=== PATIENT | female | born 1945 | race Caucasian/White ===

== ENCOUNTER 2017-04-17 07:58 | Outpatient (CLI) | payer MEDICARE, OTHER ==
[2017-04-17 16:05] LABS: ALBUMIN/GLOBULIN RATIO 1.3 (1.0-2.2); BILIRUBIN,TOTAL 0.5 mg/dL (0.2-1.0); BUN - BLOOD UREA NITROGEN 10 mg/dL (6-20); CALCIUM 9.2 mg/dL (8.5-10.3); CARBON DIOXIDE - CO2 29 mmol/L (21-32); CHLORIDE 100 mmol/L (101-111); CHOL/HDL RATIO 3.9 (<4.4); CHOLESTEROL 207 mg/dL; CREATININE 0.7 mg/dL (0.4-1.0); GFR - MDRD 82 (>89); GLUCOSE 107 mg/dL (70-100); HDL CHOLESTEROL 53 mg/dL; LDL/HDL RATIO 2.3 (<4.4); POTASSIUM 3.2 mmol/L (3.5-5.0); SODIUM 137 mmol/L (135-145); TOTAL PROTEIN 7.4 g/dL (6.7-8.2); TRIGLYCERIDES 157 mg/dL; VLDL CHOLESTEROL 31 mg/dL
== END 2017-04-17 07:59 | disposition home or self-care (01) ==
LOC: LAB.N 07:58
PROVIDERS: ATTEND Family Medicine
DX: E78.5 Hyperlipidemia, unspecified (principal)
CPT/HCPCS: 36415; 80053; 80061

== ENCOUNTER 2017-04-18 13:24 | Outpatient (CLI) | payer MEDICARE, OTHER ==
--- NOTE | 2017-04-19 09:13 | XRAY Report ---
THREE-VIEW RIGHT KNEE: 04/18/2017 CLINICAL INDICATION: Pain. FINDINGS: AP, lateral, sunrise views of the right knee demonstrate moderate osteoarthritis. There i s no evidence of acute fracture. No effusion is present. IMPRESSION: MODERATE OSTEOARTHRITIS. JOB #: [id number] EXT JOB #:[id number]
== END 2017-04-18 13:25 | disposition home or self-care (01) ==
LOC: DI.N 13:24
PROVIDERS: ATTEND Family Medicine
DX: M17.11 Unilateral primary osteoarthritis, right knee (principal)

== ENCOUNTER 2017-07-14 06:59 | Outpatient (CLI) | payer MEDICARE, OTHER ==
[2017-07-14 19:20] LABS: BASOPHILS # (AUTO) 0.1 10^3/uL (0.0-0.1); BASOPHILS % (AUTO) 1.2 %; EOSINOPHILS # (AUTO) 0.4 10^3/uL (0.0-0.7); EOSINOPHILS % (AUTO) 4.6 %; HCT - HEMATOCRIT 35.5 % (37.0-47.0); HGB - HEMOGLOBIN 12.1 g/dL (12.0-16.0); LYMPHOCYTES # (AUTO) 1.6 10^3/uL (1.5-3.5); LYMPHOCYTES % (AUTO) 19.9 %; MEAN CORPUSCULAR HEMOGLOBIN 31.2 pg (27.0-31.0); MEAN CORPUSCULAR VOLUME 91.8 fL (81.0-99.0); MEAN PLATELET VOLUME 8.6 fL (7.9-10.8); MONOCYTES # (AUTO) 0.8 10^3/uL (0.0-1.0); MONOCYTES % (AUTO) 9.6 %; NEUTROPHILS # (AUTO) 5.3 10^3/uL (1.5-6.6); NEUTROPHILS % (AUTO) 64.7 %; RED BLOOD COUNT 3.87 10^6/uL (4.20-5.40); RED CELL DISTRIBUTION WIDTH 12.6 % (12.0-15.0); UNCORRECTED WHITE BLOOD COUNT 8.3 x10^3/uL; WHITE BLOOD COUNT 8.3 x10^3/uL (4.8-10.8)
[2017-07-14 19:24] LABS: CALCIUM 9.5 mg/dL (8.5-10.3); CREATININE 0.7 mg/dL (0.4-1.0); POTASSIUM 3.9 mmol/L (3.5-5.0)
== END 2017-07-14 07:00 | disposition home or self-care (01) ==
LOC: LAB.N 06:59
PROVIDERS: ATTEND Family Medicine
DX: E87.6 Hypokalemia (principal); D64.9 Anemia, unspecified
CPT/HCPCS: 36415; 80048; 85025

== ENCOUNTER 2018-03-14 08:00 | Outpatient (CLI) | payer MEDICARE, OTHER ==
[2018-03-14 12:47] LABS: BASOPHILS # (AUTO) 0.1 10^3/uL (0.0-0.1); BASOPHILS % (AUTO) 2.1 %; EOSINOPHILS # (AUTO) 0.2 10^3/uL (0.0-0.7); HGB - HEMOGLOBIN 12.5 g/dL (12.0-16.0); LYMPHOCYTES # (AUTO) 1.5 10^3/uL (1.5-3.5); LYMPHOCYTES % (AUTO) 27.2 %; MEAN CORPUSCULAR HEMOGLOBIN 30.9 pg (27.0-31.0); MEAN CORPUSCULAR HGB CONC 33.9 g/dL (32.0-36.0); MEAN CORPUSCULAR VOLUME 91.1 fL (81.0-99.0); MEAN PLATELET VOLUME 8.4 fL (7.9-10.8); MONOCYTES # (AUTO) 0.6 10^3/uL (0.0-1.0); MONOCYTES % (AUTO) 10.2 %; NEUTROPHILS # (AUTO) 3.2 10^3/uL (1.5-6.6); NEUTROPHILS % (AUTO) 57.5 %; PLT - PLATELET COUNT 332 10^3/uL (130-450); RED BLOOD COUNT 4.06 10^6/uL (4.20-5.40); RED CELL DISTRIBUTION WIDTH 12.6 % (12.0-15.0); WHITE BLOOD COUNT 5.6 x10^3/uL (4.8-10.8)
[2018-03-14 13:12] LABS: ALBUMIN 3.9 g/dL (3.2-5.5); ALBUMIN/GLOBULIN RATIO 1.1 (1.0-2.2); ALKALINE PHOSPHATASE 54 IU/L (42-121); ALT ALANINE AMINOTRANSFERASE 22 IU/L (10-60); AST ASPARTATE AMINOTRANSFERASE 26 IU/L (10-42); BILIRUBIN,TOTAL 0.6 mg/dL (0.2-1.0); BUN - BLOOD UREA NITROGEN 14 mg/dL (6-20); CARBON DIOXIDE - CO2 27 mmol/L (21-32); CHLORIDE 100 mmol/L (101-111); CHOL/HDL RATIO 3.3 (<4.4); CHOLESTEROL 191 mg/dL; CREATININE 0.6 mg/dL (0.4-1.0); GFR - MDRD 98 (>89); GLUCOSE 105 mg/dL (70-100); HDL CHOLESTEROL 58 mg/dL; LDL CHOLESTEROL,CALCULATED 104 mg/dL; LDL/HDL RATIO 1.8 (<4.4); SODIUM 134 mmol/L (135-145); TOTAL PROTEIN 7.4 g/dL (6.7-8.2); VLDL CHOLESTEROL 29 mg/dL
== END 2018-03-14 08:01 | disposition home or self-care (01) ==
LOC: LAB.N 08:00
PROVIDERS: ATTEND Nurse Practitioner Gerontology
DX: R73.9 Hyperglycemia, unspecified (principal); D64.9 Anemia, unspecified; E78.5 Hyperlipidemia, unspecified; E87.6 Hypokalemia
CPT/HCPCS: 36415; 80053; 80061; 82728; 83721; 85025

== ENCOUNTER 2018-04-10 10:15 | Outpatient (CLI) | payer MEDICARE, OTHER | END 2018-04-10 10:16 | disposition home or self-care (01) | LOC: LAB.R 10:15 | PROVIDERS: ATTEND Nurse Practitioner Gerontology | DX: R39.89 Other symptoms and signs involving the genitourinary system (principal) | CPT/HCPCS: 87086 ==

== ENCOUNTER 2018-07-17 16:00 | Outpatient (CLI) | payer MEDICARE, OTHER ==
[2018-07-17 19:12] LABS: BASOPHILS # (AUTO) 0.1 10^3/uL (0.0-0.1); BASOPHILS % (AUTO) 0.7 %; EOSINOPHILS # (AUTO) 0.2 10^3/uL (0.0-0.7); EOSINOPHILS % (AUTO) 1.8 %; HGB - HEMOGLOBIN 12.8 g/dL (12.0-16.0); LYMPHOCYTES # (AUTO) 2.3 10^3/uL (1.5-3.5); LYMPHOCYTES % (AUTO) 27.5 %; MEAN CORPUSCULAR HEMOGLOBIN 31.4 pg (27.0-31.0); MEAN CORPUSCULAR HGB CONC 34.5 g/dL (32.0-36.0); MEAN PLATELET VOLUME 8.2 fL (7.9-10.8); MONOCYTES # (AUTO) 0.7 10^3/uL (0.0-1.0); MONOCYTES % (AUTO) 7.8 %; NEUTROPHILS # (AUTO) 5.3 10^3/uL (1.5-6.6); NEUTROPHILS % (AUTO) 62.2 %; PLT - PLATELET COUNT 417 10^3/uL (130-450); RED BLOOD COUNT 4.07 10^6/uL (4.20-5.40); RED CELL DISTRIBUTION WIDTH 12.5 % (12.0-15.0); WHITE BLOOD COUNT 8.5 x10^3/uL (4.8-10.8)
[2018-07-17 19:38] LABS: ALBUMIN 4.3 g/dL (3.2-5.5); ALBUMIN/GLOBULIN RATIO 1.3 (1.0-2.2); ALKALINE PHOSPHATASE 60 IU/L (42-121); ALT ALANINE AMINOTRANSFERASE 21 IU/L (10-60); AST ASPARTATE AMINOTRANSFERASE 28 IU/L (10-42); BILIRUBIN,TOTAL 0.5 mg/dL (0.2-1.0); BUN - BLOOD UREA NITROGEN 19 mg/dL (6-20); CALCIUM 9.6 mg/dL (8.5-10.3); CARBON DIOXIDE - CO2 25 mmol/L (21-32); CHLORIDE 100 mmol/L (101-111); CHOL/HDL RATIO 3.1 (<4.4); CHOLESTEROL 197 mg/dL; CREATININE 0.7 mg/dL (0.4-1.0); GFR - MDRD 82 (>89); GLUCOSE 103 mg/dL (70-100); HDL CHOLESTEROL 63 mg/dL; LDL CHOLESTEROL,CALCULATED 101 mg/dL; LDL/HDL RATIO 1.6 (<4.4); SODIUM 135 mmol/L (135-145); TOTAL PROTEIN 7.7 g/dL (6.7-8.2); VLDL CHOLESTEROL 33 mg/dL
== END 2018-07-17 16:01 | disposition home or self-care (01) ==
LOC: LAB.N 16:00
PROVIDERS: ATTEND Nurse Practitioner Gerontology
DX: E87.6 Hypokalemia (principal); E78.5 Hyperlipidemia, unspecified; D64.9 Anemia, unspecified; R14.0 Abdominal distension (gaseous)
CPT/HCPCS: 36415; 80053; 80061; 81599; 83721; 85025; 86255; 86256

== ENCOUNTER 2018-09-16 02:42 | Outpatient (CLI) | payer MEDICARE, OTHER | END 2018-09-16 02:43 | disposition critical access hospital (66) | LOC: EMS 02:42 | PROVIDERS: ATTEND Surgery | DX: R07.9 Chest pain, unspecified (principal) | CPT/HCPCS: A0425; A0429 ==

== ENCOUNTER 2018-09-16 03:15 | Emergency (ER) | payer MEDICARE, OTHER ==
--- NOTE | 2018-09-16 03:33 | ED Physician Documentation ---
PD HPI CHEST PAIN - Stated complaint Stated Complaint: CP - Chief complaint Chief Complaint: Cardiac - History obtained from History obtained from: Patient - History of Present Illness Timing - onset: Enter time (23:00) Timing - onset during: Rest Timing - details: Abrupt onset Quality: Pressure Location: Substernal Radiation: Abdominal (epigastrium). No: Jaw, Neck, Back, Left upper extremity, Right upper extremity Improved by: Nothing Worsened by: Other (no exacerbating factors) Associated symptoms: No: Shortness of air, Diaphoresis, Nausea, Vomiting, Feeling faint / dizzy, General Weakness, Palpitations, Cough Similar symptoms before: Has not had sx before Recently seen: Not recently seen Review of Systems Unable to obtain: Unresponsive Constitutional: reports: Fatigue, Reviewed and negative Throat: reports: Reviewed and negative Cardiac: reports: Chest pain / pressure, Palpitations, Calf pain Respiratory: reports: Reviewed and negative GI: reports: Reviewed and negative PD PAST MEDICAL HISTORY - Past Medical History Past Medical History: Yes GI: Other Psych: Anxiety Other Past Medical History: IBS - Past Surgical History 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 - Present Medications Home Medications: Ambulatory Orders Medication Instructions Recorded Confirmed Carboxymethylcellulose Sodium 15 ml OP 09/16/18 [Lubricant Eye Drop] Dicyclomine HCl 1 tab PO DAILY PRN 09/16/18 09/16/18 Fluticasone [Flonase] 1 spray NS BID 09/16/18 09/16/18 Ibuprofen 1 tab PO Q8HR PRN 09/16/18 09/16/18 Phenazopyridine [Pyridium] 09/16/18 Ranitidine HCl [Acid Business Development Recruiter] 150 mg PO DAILY 09/16/18 09/16/18 diphenhydrAMINE [Benadryl] 25 mg PO QPM PRN 09/16/18 09/16/18 predniSONE [Prednisone] PO 09/16/18 - Allergies Allergies/Adverse Reactions: Allergies Allergy/AdvReac Type Severity Reaction Status Date / Time Acyclovir Analogues Allergy Rash Verified 09/16/18 03:37 latex Allergy Hives Verified 09/16/18 03:36 Sulfa (Sulfonamide Allergy Hives Verified 09/16/18 03:36 Antibiotics) steristrips Allergy Hives Uncoded 09/16/18 03:37 - Social History Does the pt smoke?: No Smoking Status: Never smoker Does the pt drink ETOH?: No Does the pt have substance abuse?: No - Immunizations Immunizations are current?: Yes - POLST Patient has POLST: No PD ED PE NORMAL - Vitals Vital signs reviewed: Yes - General General: Alert and oriented X 3, No acute distress, Well developed/nourished - HEENT HEENT: PERRL, EOMI, Moist mucous membranes - Neck Neck: No bony TTP - Cardiac Cardiac: RRR, No murmur, No rub - Respiratory Respiratory: No respiratory distress, Clear bilaterally - Abdomen Abdomen: Soft, Non tender - Back Back: No CVA TTP - Extremities Extremities: No deformity, No tenderness to palpate, Normal ROM s pain, No edema - Neuro Neuro: Alert and oriented X 3 Eye Opening: Spontaneous Motor: Obeys Commands Results - Vitals Vitals: Vital Signs - 24 hr 09/16/18 09/16/18 09/16/18 03:18 03:30 04:00 Temperature 36.9 C 36.4 C L Heart Rate 66 67 63 Respiratory 16 16 16 Rate Blood Pressure 154/77 H 137/80 H 122/69 O2 Saturation 97 96 96 09/16/18 05:17 Temperature Heart Rate 60 Respiratory 17 Rate Blood Pressure 119/69 O2 Saturation 97 Oxygen O2 Source Room air - EKG (time done) No standard instances Rate: Rate (enter#) (67) [place]: Normal Intervals: Normal [place] QRS: Normal Ischemia: Normal ST segments - Labs Labs: Laboratory Tests 09/16/18 09/16/18 09/16/18 03:45 03:45 03:45 WBC 6.8 RBC 3.99 L Hgb 12.5 Hct 35.8 L MCV 89.9 MCH 31.3 H MCHC 34.9 RDW 12.8 Plt Count 324 MPV 7.8 L Neut # (Auto) 4.3 Lymph # (Auto) 1.7 [place] # (Auto) 0.6 Eos # (Auto) 0.1 Baso # (Auto) 0.1 Absolute Nucleated RBC 0.01 Nucleated RBC % 0.1 Sodium 137 Potassium 3.5 Chloride 104 Carbon Dioxide 24 Anion Gap 9.0 BUN 20 Creatinine 0.6 Estimated GFR (MDRD) 98 Glucose 121 H Calcium 9.3 Total Bilirubin 0.4 AST 26 ALT 20 Alkaline Phosphatase 53 Troponin I < 0.04 Total Protein 7.3 Albumin 4.5 Globulin 2.8 Albumin/Globulin Ratio 1.6 Lipase 50 TSH 09/16/18 03:45 WBC RBC Hgb Hct MCV MCH MCHC RDW Plt Count MPV Neut # (Auto) Lymph # (Auto) [place] # (Auto) Eos # (Auto) Baso # (Auto) Absolute Nucleated RBC Nucleated RBC % Sodium Potassium Chloride Carbon Dioxide Anion Gap BUN Creatinine Estimated GFR (MDRD) Glucose Calcium Total Bilirubin AST ALT Alkaline Phosphatase Troponin I Total Protein Albumin Globulin Albumin/Globulin Ratio Lipase TSH 4.08 - Rads (name of study) chest xray Radiology: Prelim report reviewed, See rad report PD MEDICAL DECISION MAKING - ED course Complexity details: reviewed results, re-evaluated patient, considered differential, d/w patient Departure - Departure Disposition: 01 Home, Self Care Clinical Impression: Atypical chest pain Condition: Good Instructions: ED Chest Pain Atypical Unkn Cause Follow-Up: [facility] [Provider Group] [facility] [Provider Group] Discharge Date/Time: 09/16/18 05:30
[2018-09-16 03:55] LABS: BASOPHILS # (AUTO) 0.1 10^3/uL (0.0-0.1); BASOPHILS % (AUTO) 0.9 %; EOSINOPHILS # (AUTO) 0.1 10^3/uL (0.0-0.7); EOSINOPHILS % (AUTO) 1.5 %; HGB - HEMOGLOBIN 12.5 g/dL (12.0-16.0); LYMPHOCYTES # (AUTO) 1.7 10^3/uL (1.5-3.5); LYMPHOCYTES % (AUTO) 24.6 %; MEAN CORPUSCULAR HEMOGLOBIN 31.3 pg (27.0-31.0); MEAN CORPUSCULAR HGB CONC 34.9 g/dL (32.0-36.0); MEAN CORPUSCULAR VOLUME 89.9 fL (81.0-99.0); MEAN PLATELET VOLUME 7.8 fL (7.9-10.8); MONOCYTES # (AUTO) 0.6 10^3/uL (0.0-1.0); MONOCYTES % (AUTO) 9.4 %; NEUTROPHILS # (AUTO) 4.3 10^3/uL (1.5-6.6); NEUTROPHILS % (AUTO) 63.6 %; PLT - PLATELET COUNT 324 10^3/uL (130-450); RED BLOOD COUNT 3.99 10^6/uL (4.20-5.40); RED CELL DISTRIBUTION WIDTH 12.8 % (12.0-15.0); WHITE BLOOD COUNT 6.8 x10^3/uL (4.8-10.8)
[2018-09-16 04:04] LABS: ALBUMIN 4.5 g/dL (3.2-5.5); ALBUMIN/GLOBULIN RATIO 1.6 (1.0-2.2); BILIRUBIN,TOTAL 0.4 mg/dL (0.2-1.0); CALCIUM 9.3 mg/dL (8.5-10.3); CREATININE 0.6 mg/dL (0.4-1.0); TOTAL PROTEIN 7.3 g/dL (6.7-8.2)
--- NOTE | 2018-09-16 04:23 | XRAY Report ---
Reason: chest pain Procedure Date: 09/16/2018 Accession Number: [id number] / [id number] Procedure: XR - Chest 2 View X-Ray CPT Code: 59982 FULL RESULT: EXAM: CHEST RADIOGRAPHY EXAM DATE: 09/16/2018 04:19 AM. CLINICAL HISTORY: Chest pain. COMPARISON: None. TECHNIQUE: 2 views. FINDINGS: Lungs/Pleura: No focal opacities evident. No pleural effusion. No pneumothorax. Normal volumes. Mediastinum: Heart and mediastinal contours are unremarkable. Other: None. IMPRESSION: Normal 2-view chest radiography. RADIA
[2018-09-16] MEDS ORDERED: ALPRAZolam 0.25 MG TABLET PO STA (05:08)
[2018-09-16 05:18] VITALS: BP 119/69
== END 2018-09-16 05:30 | disposition home or self-care (01) ==
LOC: EDUNIT# → ED 03:15
DX: R07.89 Other chest pain (principal)
CPT/HCPCS: 36415; 71046; 80053; 83690; 84443; 84484; 85025; 93005; 99283; 99284; A9270

== ENCOUNTER 2018-12-13 15:44 | Outpatient (CLI) | payer MEDICARE, OTHER ==
--- NOTE | 2018-12-13 18:28 | XRAY Report ---
Reason: URI,COUGH Procedure Date: 12/13/2018 Accession Number: [id number] / [id number] Procedure: XR - Chest 2 View X-Ray CPT Code: 86529 FULL RESULT: EXAM: CHEST RADIOGRAPHY EXAM DATE: 12/13/2018 03:55 PM. CLINICAL HISTORY: Cough. COMPARISON: CHEST 2 VIEW 09/16/2018 4:03 AM. TECHNIQUE: 2 views. FINDINGS: Lungs/Pleura: No focal opacities evident. No pleural effusion. No pneumothorax. Normal volumes. Mediastinum: Heart and mediastinal contours are unremarkable. Other: None. IMPRESSION: No acute intrathoracic plain film abnormality. RADIA
== END 2018-12-13 15:45 | disposition home or self-care (01) ==
LOC: DI 15:44
PROVIDERS: ATTEND Internal Medicine
DX: R05 Cough (principal)
CPT/HCPCS: 71046

== ENCOUNTER 2020-03-16 13:58 | Outpatient (CLI) | payer MEDICARE, OTHER ==
--- NOTE | 2020-03-17 12:52 | DEXA Report ---
Reason: OTHER SPEC MENOPAUSAL Procedure Date: 03/16/2020 Accession Number: [id number] / [id number] Procedure: DEX - Dexa Spine and/or Hip CPT Code: Final Report FULL RESULT: PROCEDURE: Dexa Spine and/or Hip INDICATIONS: OTHER SPEC MENOPAUSAL TECHNIQUE: Dual energy x-ray absorptiometry (DXA) was performed on a [employer] System. Regions measured are the AP Spine, femoral neck, and if needed forearm. COMPARISON: None. FINDINGS: Lumbar Spine: Bone Mineral Density 1.108 g/cm/cm,T score -0.5 Left Hip: Bone Mineral Density 0.948 g/cm/cm,T score -0.5 Left Femoral Neck: Bone Mineral Density 0.820 g/cm/cm, T score -1.6 (T score greater or equal to -1.0: NORMAL) (T score from -1.1 to -2.4: OSTEOPENIA) (T score less than or equal to -2.5 to: OSTEOPOROSIS) Impression: 1. Osteopenia of the left femoral neck. Otherwise normal bone mineral density. Patients with diagnosis of osteoporosis or osteopenia should have regular bone mineral density assessment. For those eligible for Medicare, routine testing is allowed once every 2 years. Testing frequency can be increased for patients who have rapidly progressing disease or for those who are receiving medical therapy to restore bone mass. Reviewed by: Kourtney Ayala MD on 03/17/2020 12:51 PM PDT Approved by: Kourtney Ayala MD on 03/17/2020 12:51 PM PDT Station ID: [id number]
== END 2020-03-16 13:59 | disposition home or self-care (01) ==
LOC: DI 13:58
PROVIDERS: ATTEND Family Medicine
DX: Z13.820 Encounter for screening for osteoporosis (principal); N95.8 Other specified menopausal and perimenopausal disorders; M85.88 Other specified disorders of bone density and structure, other site
CPT/HCPCS: 77080

== ENCOUNTER 2021-01-20 12:50 | Outpatient (CLI) | payer MEDICARE, OTHER ==
--- NOTE | 2021-01-21 15:19 | Mammography Report ---
BILATERAL DIGITAL SCREENING MAMMOGRAM 3D/2D: 01/20/2021 CLINICAL: Routine screening. Comparison is made to exams dated: 05/30/2019 mammogram, 07/19/2017 mammogram, 07/04/2016 mammogram - [facility], and 06/29/2015 mammogram - [facility]. There are scattered fib roglandular elements in both breasts. No significant masses, calcifications, or other findings are seen in either breast. There has been no significant interval change. IMPRESSION: NEGATIVE There is no mammographic evidence of malignancy. A 1 year screening mammogram is recommended. This exam was interpreted at Station ID: [id number]. NOTE: For mammograms, a report in lay terms will be sent to the patient. Approximately 15% of breast malignancies will not be visualized mammographically. In the management of a palpable breast mass, a negative mammogram must not discourage biopsy of a clinically suspicious lesion. Electronically Signed By: Amelie lisa/penrad:01/20/2021 16:31:17 ACR BI-RADS Category 1: Negative 3341F PARENCHYMAL PATTERN: (A) - The breast(s) demonstrate(s) scattered fibroglandular densities. BI-RADS CATEGORY: (1) - 1 RECOMMENDATION: (ANNUAL) - Recommend routine annual screening mammography. [id number] 1 year screening LATERALITY: (B)
== END 2021-01-20 12:51 | disposition home or self-care (01) ==
LOC: DI.N 12:50
DX: Z12.31 Encounter for screening mammogram for malignant neoplasm of breast (principal)

== ENCOUNTER 2021-07-18 13:13 | Emergency (ER) | payer MEDICARE, OTHER ==
--- NOTE | 2021-07-18 13:19 | ED Physician Documentation ---
PD HPI CHEST PAIN - Stated complaint Stated Complaint: CHEST PX/NAUSEA/WEAKNESS - History obtained from History obtained from: Patient - History of Present Illness Timing - onset: How many weeks ago (2) Timing - onset during: Sleep. No: Exertion, Eating Timing - duration: Weeks (2She states she has had fairly consistent discomfort in the epigastric to lower substernal area radiating to the back over 2 weeks. More notable during the middle of the night. Some exertional dyspnea but no chest pain per se. Nausea with less appetite.) Quality: Pressure, Aching, Indigestion Location: Substernal, Upper back Radiation: Back. No: Neck, Abdominal Improved by: No: Rest Worsened by: Position (she feels okay going to bed, but has awakened during night several times with pain worse in back, with nausea.). No: Exertion (She states getting some dyspnea with walking uphill, but not changing degree of back/chest discomfort.) Associated symptoms: Nausea, General Weakness. No: Shortness of air, Feeling faint / dizzy, Palpitations Recently seen: Clinic (She has been having symptoms of anxiety and started on BuSpar in March and has been on that now for 3 months. She had started a probiotic in May but had intestinal gas and cramps and so discontinued it.) Review of Systems Constitutional: denies: Fever, Chills Nose: denies: Rhinorrhea / runny nose, Congestion Throat: denies: Sore throat Cardiac: reports: Chest pain / pressure. denies: Palpitations, Pedal edema, Calf pain Respiratory: reports: Dyspnea. denies: Cough, Wheezing Skin: denies: Rash Musculoskeletal: denies: Neck pain, Back pain, Extremity swelling Neurologic: reports: Generalized weakness. denies: Focal weakness, Near syncope Immunocompromised: denies: Immunocompromised PD PAST MEDICAL HISTORY - Past Medical History Cardiovascular: Hypertension Respiratory: None Neuro: None Endocrine/Autoimmune: None GI: Other Psych: Anxiety - Past Surgical History Past Surgical History: Yes /DRIVER HELPER: Hysterectomy - Present Medications Home Medications: Ambulatory Orders Medication Instructions Recorded Confirmed Carboxymethylcellulose Sodium 15 ml OP 09/16/18 [Lubricant Eye Drop] Dicyclomine HCl 1 tab PO DAILY PRN 09/16/18 02/28/20 Fluticasone [Flonase] 1 spray NS BID 09/16/18 02/28/20 Ibuprofen 1 tab PO Q8HR PRN 09/16/18 02/28/20 Phenazopyridine [Pyridium] 09/16/18 diphenhydrAMINE [Benadryl] 25 mg PO QPM PRN 09/16/18 02/28/20 predniSONE [Prednisone] PO 09/16/18 raNITIdine HCl [Acid Double Corner Cutter] 150 mg PO DAILY 09/16/18 02/28/20 Ondansetron Odt [Zofran] 4 mg TL Q8H PRN #20 tablet 07/18/21 Pantoprazole Sodium 20 mg PO DAILY 30 Days #30 tab 07/18/21 Sucralfate [Carafate] 1 gm PO ACHS #20 tablet 07/18/21 - Allergies Allergies/Adverse Reactions: Allergies Allergy/AdvReac Type Severity Reaction Status Date / Time Acyclovir Analogues Allergy Rash Verified 02/28/20 13:22 amoxicillin [From Augmentin] Allergy Hives Verified 07/18/21 13:29 clavulanic acid Allergy Hives Verified 07/18/21 13:29 [From Augmentin] latex Allergy Hives Verified 02/28/20 13:22 Sulfa (Sulfonamide Allergy Hives Verified 02/28/20 13:22 Antibiotics) sulfamethoxazole Allergy Hives Verified 07/18/21 13:29 [From Septra] trimethoprim [From Septra] Allergy Hives Verified 07/18/21 13:29 venlafaxine AdvReac Anxiety Verified 07/18/21 13:29 - Social History Does the pt smoke?: No Smoking Status: Never smoker Does the pt drink ETOH?: No Does the pt have substance abuse?: No - Immunizations Immunizations are current?: Yes - POLST Patient has POLST: No PD ED PE NORMAL - Vitals Vital signs reviewed: Yes - General General: Alert and oriented X 3, Well developed/nourished - HEENT HEENT: Moist mucous membranes, Pharynx benign - Neck Neck: Supple, no meningeal sign, No adenopathy - Cardiac Cardiac: RRR, No murmur - Respiratory Respiratory: Clear bilaterally - Abdomen Abdomen: Soft, Other (mild tenderness epigastric and right upper. ) - Derm Derm: Normal color, Warm and dry - Extremities Extremities: No edema, No calf tenderness / cord - Neuro Neuro: Alert and oriented X 3, No motor deficit, Normal speech - Psych Psych: No: Normal affect (anxious) Results - Vitals Vitals: Vital Signs - 24 hr 07/18/21 07/18/21 07/18/21 13:24 13:39 14:00 Temperature 37.1 C 37.1 C Heart Rate 84 84 70 Respiratory 24 20 18 Rate Blood Pressure 169/128 H 173/99 H 173/99 H O2 Saturation 98 98 99 07/18/21 07/18/21 07/18/21 14:35 15:18 15:30 Temperature Heart Rate 71 75 74 Respiratory 13 15 17 Rate Blood Pressure 144/66 H 182/81 H 191/92 H O2 Saturation 96 98 100 07/18/21 15:54 Temperature 37 C Heart Rate 66 Respiratory 16 Rate Blood Pressure 159/81 H O2 Saturation 97 Oxygen O2 Source Room air - EKG (time done) 13:17 Rate: Rate (enter#) (79) Rhythm: NSR [place]: Normal Intervals: Normal [place] QRS: Normal Ischemia: Normal ST segments. No: ST elevation c/w ischemia, ST depression - Labs Labs: Laboratory Tests 07/18/21 07/18/21 07/18/21 13:55 13:55 13:55 WBC 8.3 RBC 3.90 L Hgb 12.5 Hct 35.8 L MCV 91.8 MCH 32.1 H MCHC 34.9 RDW 11.8 L Plt Count 326 MPV 9.6 Neut # (Auto) 6.1 Lymph # (Auto) 1.6 [place] # (Auto) 0.6 Eos # (Auto) 0.0 Baso # (Auto) 0.1 Absolute Nucleated RBC 0.00 Nucleated RBC % 0.0 Sodium 134 L Potassium 3.9 Chloride 97 L Carbon Dioxide 27 Anion Gap 10.0 BUN 24 H Creatinine 0.7 Estimated GFR (MDRD) 81 L Glucose 127 H Calcium 9.6 Magnesium 2.0 Total Bilirubin 0.6 AST 26 ALT 22 Alkaline Phosphatase 48 Troponin I High Sens 5.0 B-Natriuretic Peptide Total Protein 7.0 Albumin 4.4 Globulin 2.6 Albumin/Globulin Ratio 1.7 Lipase 37 TSH 07/18/21 07/18/21 13:55 13:55 WBC RBC Hgb Hct MCV MCH MCHC RDW Plt Count MPV Neut # (Auto) Lymph # (Auto) [place] # (Auto) Eos # (Auto) Baso # (Auto) Absolute Nucleated RBC Nucleated RBC % Sodium Potassium Chloride Carbon Dioxide Anion Gap BUN Creatinine Estimated GFR (MDRD) Glucose Calcium Magnesium Total Bilirubin AST ALT Alkaline Phosphatase Troponin I High Sens B-Natriuretic Peptide 148 H Total Protein Albumin Globulin Albumin/Globulin Ratio Lipase TSH 1.39 - Rads (name of study) chest xray Radiology: Prelim report reviewed (no acute process), See rad report upper abd U/S Radiology: Prelim report reviewed (no signs cholecystitis. ), See rad report PD MEDICAL DECISION MAKING - ED course Complexity details: reviewed results, considered differential (strong anxiety component from talking to her. Consistency and nonexertional aspects of chest discomfort with normal trop/ECG strongly speaks against ACS. Worsening with lying position suggests GERD/reflux. ), d/w patient Departure - Departure Disposition: Home, Self Care Clinical Impression: Epigastric pain Gastritis, acute Qualifiers: Gastritis type: unspecified gastritis Gastritis bleeding: without bleeding Qualified Code(s): K29.00 - Acute gastritis without bleeding Condition: Stable Record reviewed to determine appropriate education?: Yes Instructions: ED PUD Vs Gastritis Follow-Up: Placido Giles DO [Primary Care Provider] - Prescriptions: Sucralfate [Carafate] 1 gm PO ACHS #20 tablet Pantoprazole Sodium 20 mg PO DAILY 30 Days #30 tab Ondansetron Odt [Zofran] 4 mg TL Q8H PRN #20 tablet PRN Reason: Nausea / Vomiting Comments: Your symptoms sound likely to be an irritation of the stomach and esophagus and some reflux. Your EKG, chest x-ray, abdominal ultrasound and blood tests do not show any signs of heart attack or heart failure, fluid in the lungs or pneumonia, gallbladder problems or pancreatitis, or thyroid disorder. I would suggest pantoprazole acid reducing medicine daily for the next month. For the next 5 days I would have you take sucralfate 4 times daily to coat the stomach and esophagus and try to reduce symptoms. Ondansetron 2-3 times daily for the next week for nausea. [facility] [place] Follow-up with your primary care later this week, call for an appointment. See if they want to do any other further testing to evaluate. Considerations could be a stress test to and completely ensure no heart disease causing your symp toms. Other considerations would be further evaluation for the stomach such as a scope. Discharge Date/Time: 07/18/21 15:58
[2021-07-18] MEDS ORDERED: LIDOCAINE VISCOUS 2% 15 ML UDC MM STA (13:56)
[2021-07-18] MEDS ORDERED: MAG HYDROX/AL HYDROX/SIMETH 30 ML UDC PO STA (13:56)
[2021-07-18 14:18] LABS: BASOPHILS # (AUTO) 0.1 10^3/uL (0.0-0.1); BASOPHILS % (AUTO) 0.6 %; EOSINOPHILS % (AUTO) 0.4 %; HCT - HEMATOCRIT 35.8 % (37.0-47.0); HGB - HEMOGLOBIN 12.5 g/dL (12.0-16.0); LYMPHOCYTES # (AUTO) 1.6 10^3/uL (1.5-3.5); LYMPHOCYTES % (AUTO) 18.9 %; MEAN CORPUSCULAR HEMOGLOBIN 32.1 pg (27.0-31.0); MEAN CORPUSCULAR HGB CONC 34.9 g/dL (32.0-36.0); MEAN CORPUSCULAR VOLUME 91.8 fL (81.0-99.0); MEAN PLATELET VOLUME 9.6 fL (7.9-10.8); MONOCYTES # (AUTO) 0.6 10^3/uL (0.0-1.0); NEUTROPHILS # (AUTO) 6.1 10^3/uL (1.5-6.6); NEUTROPHILS % (AUTO) 72.6 %; PLT - PLATELET COUNT 326 10^3/uL (130-450); RED CELL DISTRIBUTION WIDTH 11.8 % (12.0-15.0); WHITE BLOOD COUNT 8.3 x10^3/uL (4.8-10.8)
[2021-07-18] MEDS ORDERED: FAMOTIDINE 20 MG/2 ML VIAL IVP STA (14:23)
[2021-07-18] MEDS ORDERED: DROPERIDOL 5 MG/2 ML VIAL IVP STA (14:23)
--- NOTE | 2021-07-18 14:31 | XRAY Report ---
PROCEDURE: Chest 1 View X-Ray INDICATIONS: Chest Pain TECHNIQUE: One view of the chest was acquired. COMPARISON: 12/13/2018 FINDINGS: Surgical changes and devices: None. Lungs and pleura: No pleural effusions or pneumothorax. Lungs are clear. Mediastinum: Mediastinal contours appear normal. Heart size is normal. Bones and chest wall: No suspicious bony lesions. Overlying soft tissues appear unremarkable. IMPRESSION: No acute process. Reviewed by: Bertin Ta MD on 07/18/2021 2:30 PM PDT Approved by: Bertin Ta MD on 07/18/2021 2:30 PM PDT Station ID: [id number]
[2021-07-18 14:32] LABS: ALBUMIN 4.4 g/dL (3.2-5.5); ALBUMIN/GLOBULIN RATIO 1.7 (1.0-2.2); BILIRUBIN,TOTAL 0.6 mg/dL (0.2-1.0); CALCIUM 9.6 mg/dL (8.5-10.3); CREATININE 0.7 mg/dL (0.4-1.0); POTASSIUM 3.9 mmol/L (3.5-5.0)
--- NOTE | 2021-07-18 15:01 | Ultrasound Report ---
PROCEDURE: Abdomen Limited INDICATIONS: epigastric pain for couple weeks TECHNIQUE: Real-time focused scanning was performed of the abdomen, with image documentation. COMPARISON: None FINDINGS: Liver is within normal limits. Sludge within the gallbladder lumen is present. Gallbladder is contracted and wall measures roughly 3.5 mm in thickness. No biliary ductal dilatation. Pancreas is grossly unremarkable. Right kidney is grossly unremarkable without hydronephrosis. IVC is patent. IMPRESSION: 1. Contracted gallbladder which demonstrates mild wall thickening, likely secondary to contraction. C linical correlation is recommended. 2. Gallbladder sludge. Reviewed by: Bertin Ta MD on 07/18/2021 3:00 PM PDT Approved by: Bertin Ta MD on 07/18/2021 3:00 PM PDT Station ID: [id number]
[2021-07-18] MEDS ORDERED: diphenhydrAMINE INJ 50 MG/ML VIAL IVP STA (15:23)
[2021-07-18 15:56] VITALS: BP 159/81
== END 2021-07-18 15:58 | disposition home or self-care (01) ==
LOC: ED 13:13
DX: K29.00 Acute gastritis without bleeding (principal); R07.89 Other chest pain; F41.9 Anxiety disorder, unspecified; I10 Essential (primary) hypertension
CPT/HCPCS: 36415; 71045; 76705; 80053; 83690; 83735; 83880; 84443; 84484; 85025; 93005; 96374; 96375; 99284; A9270; J1200

== ENCOUNTER 2022-03-21 12:29 | Outpatient (CLI) | payer MEDICARE, OTHER ==
--- NOTE | 2022-03-21 17:03 | DEXA Report ---
PROCEDURE: Dexa Spine and/or Hip INDICATIONS: POST MENOPAUSAL TECHNIQUE: Dual energy x-ray absorptiometry (DXA) was performed on a [employer] System. Regions measur ed are the AP Spine, femoral neck, and if needed forearm. COMPARISON: 03/16/2020. FINDINGS: Lumbar Spine: Bone Mineral Density 1.273 g/cm/cm,T score 0.6, normal Left Hip: Bone Mineral Density 0.952 g/cm/cm,T score -0.4, normal Left Femoral Neck: Bone Mineral Density 0.858 g/cm/cm, T score -1.3, osteopenia IMPRESSION: 1. Osteopenia on the basis of left femoral neck bone mineral density. 2. No significant change in bone mineral density when compared with 03/16/2020 study. 3. Patients with diagnosis of osteoporosis or osteopenia should have regular bone mineral density ass essment. For those eligible for Medicare, routine testing is allowed once every 2 years. Testing fr equency can be increased for patients who have rapidly progressing disease or for those who are recei ving medical therapy to restore bone mass. Reviewed by: Jeff Nguyen MD on 03/21/2022 5:02 PM PDT Approved by: Jeff Nguyen MD on 03/21/2022 5:02 PM PDT Station ID: [id number]
== END 2022-03-21 12:30 | disposition home or self-care (01) ==
LOC: DI 12:29
PROVIDERS: ATTEND Family Medicine
DX: Z13.820 Encounter for screening for osteoporosis (principal); M85.88 Other specified disorders of bone density and structure, other site

== ENCOUNTER 2024-04-04 12:29 | Outpatient (CLI) | payer MEDICARE, OTHER ==
--- NOTE | 2024-04-04 15:28 | DEXA Report ---
PROCEDURE: Dexa Spine and/or Hip INDICATIONS: OSTEOPENIA TECHNIQUE: Dual energy x-ray absorptiometry (DXA) was performed on a [employer] System. Regions measur ed are the AP Spine, femoral neck, and if needed forearm. COMPARISON: 03/21/2022 FINDINGS: Lumbar Spine: Bone Mineral Density: 1.021 g/cm/cm,T score: 0.2. There has been no statistically significant change in bone mineral density since the prior study. Left Femoral Neck: Bone Mineral Density: 0.802 g/cm/cm, T score: -1.7. Left Hip: Bone Mineral Density: 0.903 g/cm/cm,T score: -0.8. Since the most recent prior study, there has been a statistically significant decrease in bone mineral density by 5.1 percent. (T score greater or equal to -1.0: NORMAL) (T score from -1.1 to -2.4: OSTEOPENIA) (T score less than or equal to -2.5 to: OSTEOPOROSIS) Impression: By WHO criteria, this patient has low bone density (osteopenia). No statistical interval change in bone mineral density of the lumbar spine. Interval statistical decr ease in bone mineral density of the hip. Patients with diagnosis of osteoporosis or osteopenia should have regular bone mineral density assess ment. For those eligible for Medicare, routine testing is allowed once every 2 years. Testing frequ ency can be increased for patients who have rapidly progressing disease or for those who are receivin g medical therapy to restore bone mass. Reviewed by: Navi Dailey MD on 04/04/2024 3:27 PM PDT Approved by: Navi Dailey MD on 04/04/2024 3:27 PM PDT Station ID: [id number]
== END 2024-04-04 12:30 | disposition home or self-care (01) ==
LOC: DI 12:29
PROVIDERS: ATTEND Family Medicine
DX: M85.88 Other specified disorders of bone density and structure, other site (principal)